=== PATIENT | female | born 1985 | race Caucasian/White ===

== ENCOUNTER 2021-05-19 09:36 | Observation (INO) ==
[2021-05-19 10:09] LABS: Basophils # 0.1 K/mcL (0.0-0.2); Basophils % 0.9 %; Eosinophils # 0.2 K/mcL (0.0-0.6); Eosinophils % 2.2 %; Hematocrit 37.3 % (35.3-44.9); Hemoglobin 12.8 g/dL (11.5-15.4); Lymphocytes # 2.5 K/mcL (0.6-4.6); Lymphocytes % 23.9 %; Mean Corpuscular HGB Conc 34.3 g/dL (31.6-35.5); Mean Corpuscular Hemoglobin 31.1 pg (28.0-33.3); Mean Corpuscular Volume 90.5 fL (83.0-100.0); Mean Platelet Volume 9.4 fL (9.4-12.4); Monocytes # 0.4 K/mcL (0.0-1.3); Monocytes % 3.5 %; Neutrophils # 7.2 K/mcL (1.6-8.9); Nucleated Red Blood Cells 0.2 /100 WBC (0); Platelet Count 206 K/mcL (140-400); Red Blood Count 4.12 M/mcL (3.82-4.97); Red Cell Distribution Width 19.5 % (11.5-14.5); Segmented Neutrophils % 68.5 %; White Blood Count 10.5 K/mcL (4.3-11.1)
[2021-05-19 10:28] LABS: BUN/Creatinine Ratio 6 (6-26); Blood Urea Nitrogen 4 mg/dL (6-20); Calcium 9.1 mg/dL (8.6-10.3); Carbon Dioxide 24 mEq/L (23-29); Chloride 99 mEq/L (98-107); Glucose 372 mg/dL (70-105); Osmolality,Calculated 292 (280-300); Potassium 3.9 mEq/L (3.5-5.1); Sodium 135 mEq/L (136-145); eGFR For African Americans > 60 (> 60); eGFR For Non-African Americans > 60 (> 60)
[2021-05-19 10:29] LABS: Troponin I < 0.03 ng/mL (< 0.04)
[2021-05-19] MEDS ORDERED: Isovue-370 500 ML BOTTLE IVP ONE (10:37)
[2021-05-19] MEDS ORDERED: *HR* Heparin 5,000 UNIT/ML VIAL IVP ONE (11:31)
[2021-05-19] MEDS ORDERED: *HR* Heparin 5,000 UNIT/ML VIAL IVP PRN (11:31)
[2021-05-19 11:53] LABS: Estimated Average Glucose 220 mg/dl; Hemoglobin A1C 9.3 %
[2021-05-19] MEDS ORDERED: Naloxone 0.4 MG/ML INJ IVP PRN (12:33)
[2021-05-19] MEDS ORDERED: Ondansetron 4 MG/2 ML VIAL IVP PRN (12:33)
[2021-05-19] MEDS ORDERED: Ipratropium/Albuterol Neb 3 ML IH PRN (12:39)
[2021-05-19] MEDS ORDERED: D5% in Water 1,000 ML IVC PRN (12:44)
[2021-05-19] MEDS ORDERED: Dextrose 4 GM Chewable Tablets PO PRN ×2 (12:44)
[2021-05-19] MEDS ORDERED: *HR* Dextrose 50 % in Water (Syg) 50 ML SYRINGE IVP PRN (12:44)
[2021-05-19] MEDS ORDERED: Rizatriptan Benzoate [Maxalt Mlt] 10 MG Tab.Rapdis PO PRN (12:45)
[2021-05-19] MEDS: Heparin 25,000UNIT/250ML 1/2NS 25,000 UNIT/250 ML IV.SOLN IVC SCH (13:00)
[2021-05-19] MEDS: Gabapentin 300 MG CAPSULE PO SCH ×3 (15:38→20:33)
[2021-05-19] MEDS: Insulin LISPRO 300 UNITS/3 ML VIAL SUBQ SCH ×2 (16:53→20:24)
[2021-05-19] MEDS: Topiramate 25 MG TABLET PO SCH ×2 (20:27→20:33)
[2021-05-19] MEDS ORDERED: Insulin DETEMIR 100 UNIT/ML X5UNITS SUBQ SCH (21:00)
[2021-05-19] MEDS: *HR* Heparin 5,000 UNIT/ML VIAL IVP PRN (22:32)
[2021-05-19] MEDS: ALPRAZolam 1 MG TABLET PO SCH (22:47)
[2021-05-19] MEDS: Mirtazapine 15 MG TABLET PO SCH (22:47)
[2021-05-20] MEDS: risperiDONE 1 MG TABLET PO SCH ×3 (02:02→20:46)
[2021-05-20] MEDS: Heparin 25,000UNIT/250ML 1/2NS 25,000 UNIT/250 ML IV.SOLN IVC SCH ×2 (02:02→13:28)
[2021-05-20 06:01] LABS: Basophils # 0.1 K/mcL (0.0-0.2); Basophils % 0.9 %; Eosinophils # 0.3 K/mcL (0.0-0.6); Eosinophils % 3.1 %; Hematocrit 33.9 % (35.3-44.9); Hemoglobin 11.1 g/dL (11.5-15.4); Immature Granulocytes % 1.2 % (0-4); Lymphocytes # 3.3 K/mcL (0.6-4.6); Lymphocytes % 31.1 %; Mean Corpuscular HGB Conc 32.7 g/dL (31.6-35.5); Mean Corpuscular Hemoglobin 30.1 pg (28.0-33.3); Mean Corpuscular Volume 91.9 fL (83.0-100.0); Mean Platelet Volume 9.9 fL (9.4-12.4); Monocytes # 0.4 K/mcL (0.0-1.3); Monocytes % 3.7 %; Neutrophils # 6.3 K/mcL (1.6-8.9); Nucleated Red Blood Cells 0.2 /100 WBC (0); Platelet Count 188 K/mcL (140-400); Red Blood Count 3.69 M/mcL (3.82-4.97); Red Cell Distribution Width 19.2 % (11.5-14.5); White Blood Count 10.6 K/mcL (4.3-11.1)
[2021-05-20 06:56] LABS: BUN/Creatinine Ratio 9 (6-26); Blood Urea Nitrogen 6 mg/dL (6-20); Calcium 8.8 mg/dL (8.6-10.3); Carbon Dioxide 29 mEq/L (23-29); Chloride 99 mEq/L (98-107); Glucose 213 mg/dL (70-105); Magnesium 1.8 mg/dL (1.6-2.6); Osmolality,Calculated 288 (280-300); Phosphorous 4.2 mg/dL (2.7-4.5); Potassium 3.5 mEq/L (3.5-5.1); Sodium 137 mEq/L (136-145); eGFR For African Americans > 60 (> 60); eGFR For Non-African Americans > 60 (> 60)
[2021-05-20] MEDS ORDERED: Perflutren Lipid Microsphere 1.3 ML in 0.9 % Sodium Chloride 8.7 ML IVP PRN (07:42)
[2021-05-20] MEDS: ALPRAZolam 1 MG TABLET PO SCH ×3 (08:38→20:47)
[2021-05-20] MEDS: Insulin LISPRO 300 UNITS/3 ML VIAL SUBQ SCH ×4 (08:39→20:50)
[2021-05-20] MEDS: *HR* Heparin 5,000 UNIT/ML VIAL IVP PRN (11:34)
[2021-05-20] MEDS: Apixaban 5 MG TABLET PO SCH (17:20)
[2021-05-20] MEDS: Mirtazapine 15 MG TABLET PO SCH (20:47)
[2021-05-20] MEDS: Insulin DETEMIR 100 UNIT/ML X5UNITS SUBQ SCH (20:50)
[2021-05-21 01:39] LABS: Hematocrit 34.6 % (35.3-44.9); Hemoglobin 11.2 g/dL (11.5-15.4)
[2021-05-21 04:10] VITALS: TEMP 97.9
[2021-05-21 07:40] VITALS: BP 139/85; PULSE 79; O2SAT 95
[2021-05-21] MEDS: Apixaban 5 MG TABLET PO SCH (08:29)
[2021-05-21] MEDS: risperiDONE 1 MG TABLET PO SCH (08:29)
[2021-05-21] MEDS: ALPRAZolam 1 MG TABLET PO SCH (08:29)
[2021-05-21] MEDS: Insulin LISPRO 300 UNITS/3 ML VIAL SUBQ SCH (08:32)
[2021-05-21] MEDS: Insulin DETEMIR 100 UNIT/ML X5UNITS SUBQ SCH (08:33)
[2021-05-21] MEDS ORDERED: Fluticasone Propionate Nasal 50 MCG/SPRAY BOTTLE NS SCH (09:00)
[2021-05-21] MEDS ORDERED: Tiotropium 10 INH DOSE IH SCH (10:00)
[2021-05-21] MEDS ORDERED: Budesonide/Formoterol 160/4.5 1 PUFF INH IH SCH (10:00)
[2021-05-21] MEDS ORDERED: Tiotropium 10 INH DOSE IH ONE (10:52)
== END 2021-05-21 12:14 | disposition home health service (06) ==
LOC: 3ANU 09:36 → EMEROOARM 09:36 → SUATTDRO 12:25 → 3ANU 14:34
PROVIDERS: ADMIT Student in an Organized Health Care Education/Training Program; ATTEND Internal Medicine